=== PATIENT | male | born 1985 | race Caucasian/White ===

== ENCOUNTER 2019-08-28 11:01 | Emergency (ER) | payer OTHER ==
[~2019-08-28] VITALS: Ht 175.3 cm; Wt 119.4 kg
--- NOTE | 2019-08-28 11:42 | NUR ---
pt in room assumed care. as
[2019-08-28] MEDS ORDERED: SODIUM CHLORIDE 0.9% 1,000ML IVBOLUS ONE (12:00)
--- NOTE | 2019-08-28 12:03 | NUR ---
piv est labs sent fluids infusing xr pending. pain incr on insp/coughing in luq no fever chills this am denies n/v/d. call naidu in reach. as
[2019-08-28 12:07] LABS: BASOPHILS # (AUTO) 0.04 x10^3/uL (0-0.1); BASOPHILS % (AUTO) 0 % (0-1); EOSINOPHILS # (AUTO) 0.16 x10^3/uL (0-0.4); EOSINOPHILS % (AUTO) 1 % (1-7); LYMPHOCYTES # (AUTO) 2.25 x10^3/uL (1-3.4); LYMPHOCYTES % (AUTO) 19 % (22-44); MD NO; MEAN CORPUSCULAR HEMOGLOBIN 31.9 pg (27.5-34.5); MEAN CORPUSCULAR HGB CONC 33.8 g/dL (33.2-36.2); MEAN CORPUSCULAR VOLUME 94.4 fL (81-97); MEAN PLATELET VOLUME 7.7 fL (7.4-10.4); MONOCYTES # (AUTO) 0.68 x10^3/uL (0.2-0.8); MONOCYTES % (AUTO) 6 % (2-9); NEUTROPHILS # (AUTO) 8.98 x10^3/uL (1.8-6.8); NEUTROPHILS % (AUTO) 74 % (42-75); PLATELET COUNT 356 x10^3/uL (130-400); RED BLOOD COUNT 5.25 x10^6/uL (4.38-5.82); RED CELL DISTRIBUTION WIDTH 13.2 % (9.4-14.8)
[2019-08-28 12:18] LABS: ALANINE AMINOTRANSFERASE 115 U/L (12-78); ALBUMIN 3.7 g/dL (3.4-5.0); ANION GAP 5 mmol/L (5-15); CALCIUM 8.7 mg/dL (8.5-10.1); CHLORIDE 109 mmol/L (98-107); CREATININE 0.87 mg/dL (0.7-1.3)
[2019-08-28 12:23] LABS: ALKALINE PHOSPHATASE 60 U/L (45-117); BILIRUBIN,TOTAL 0.9 mg/dL (0.2-1.0); TOTAL PROTEIN 7.5 g/dL (6.4-8.2); TROPONIN I < 0.015 ng/mL (0.000-0.045)
[2019-08-28] MEDS ORDERED: METHOCARBAMOL 750 MG TABLET PO ONE (13:00)
[2019-08-28] MEDS ORDERED: METHOCARBAMOL 750 MG TABLET ONE (13:03)
[2019-08-28] MEDS ORDERED: KETOROLAC 30 MG/1 ML ONE (13:06)
[2019-08-28 13:14] VITALS: BP 146/77
--- NOTE | 2019-08-28 13:26 | NUR ---
meds per mar, tbdc after ivf infused. as
[2019-08-28] MEDS ORDERED: KETOROLAC 30 MG/1 ML IM ONE (13:30)
[2019-08-28] MEDS ORDERED: KETOROLAC 30 MG/1 ML IVPush ONE (13:30)
== END 2019-08-28 12:55 ==
LOC: ED 12:54
DX: R09.1 Pleurisy (principal); R00.0 Tachycardia, unspecified; R05 Cough
CPT/HCPCS: 36415; 71046; 80053; 84484; 85025; 85379; 93005; 96374; 99285; J1885; J7030